=== PATIENT | female | born 1980 ===

== ENCOUNTER → 2024-03-16 11:54 | Outpatient (REF) | payer BC, SELFPAY | LOC: WDC 11:54 | PROVIDERS: ATTENDING PHYSICIAN Obstetrics & Gynecology Gynecology; FAMILY PHYSICIAN Internal Medicine; REFERRING PHYSICIAN Specialist | DX: Z12.31 Encounter for screening mammogram for malignant neoplasm of breast (principal) | CPT/HCPCS: 77063; 77067 ==

== ENCOUNTER → 2024-07-17 14:12 | Outpatient (REF) | payer BC, SELFPAY | LOC: WDC 14:12 | PROVIDERS: ATTENDING PHYSICIAN Obstetrics & Gynecology Gynecology; FAMILY PHYSICIAN Internal Medicine | DX: R92.2 Inconclusive mammogram (principal); R92.30 Dense breasts, unspecified; Z91.89 Other specified personal risk factors, not elsewhere classified | CPT/HCPCS: 76641 ==